=== PATIENT | female | born 1940 | race Caucasian/White ===

== ENCOUNTER → 2025-04-17 | Outpatient (BNVA) | payer OTHER, MEDICARE, SELFPAY | END | disposition home or self-care (01) | PROVIDERS: PCP Family Medicine; Referring Provider Family Medicine; Visit Provider Urology | DX: R32 Unspecified urinary incontinence (principal); G30.9 Alzheimer's disease, unspecified; F02.80 Dementia in other diseases classified elsewhere, unspecified severity, without behavioral disturbance, psychotic disturbance, mood disturbance, and anxiety | CPT/HCPCS: 81003; 99213; G0463 ==